=== PATIENT | male | born 1970 | race Caucasian/White ===

== ENCOUNTER 2022-05-23 12:39 | Outpatient (CLI) | payer BC, SELFPAY ==
--- OUTSIDE RECORDS SUMMARY | 2022-05-09 10:24 | XMS_ITS | Continuity of Care Document ---
:1970 Author Social History Smoking Status Unknown if ever smoked Additional Data Assigned Sex Male Medications No known medications Insurance Providers Guarantor Gilson Zambrano Address [address] [place], [place] [id number] Contact Info. Home Phone: Payer Policy Id Coverage Id Subscriber's Subscriber Id Effective E xpiration Name Date Date Blue [id number] Gilson Zambrano [id number] [facility] [id number]
--- NOTE | 2022-05-23 12:45 | CRLHL7_ITS ---
For Patients: As a result of the Century Cures Act, medical imaging exams and procedure reports are released immediately into your electronic medical record. You may view this report before your referring provider. If you have questions, please contact your health care provider. DATE: 05/23/2022. CLINICAL HISTORY: Lung cancer with brain metastases. TECHNIQUE: Multi-sequence, multiplanar MRI examination of the brain was performed. Contrast: 15mL of Dotarem administered intravenously COMPARISON: Brain MRI dated 02/17/2022. FINDINGS: There is no restricted diffusion in the brain to indicate the presence of acute ischemia. No extra-axial collection, mass effect, or midline shift. 4mm rounded focus of T2/FLAIR hyperintensity within the right temporal lobe (series 5, image 19), previously 2mm on the comparison examination. No convincing evidence of enhancement. Mild generalized parenchymal volume loss with resulting prominence of the cerebral sulci and the ventricular system. No definite pathologic intraparenchymal enhancement. 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 The orbits are unremarkable. Mild mucosal thickening of the inferior left maxillary sinus as well as the bilateral ethmoid air cells. Trace left greater than right mastoid effusions. The calvarium is unremarkable. IMPRESSION: 1. No definite pathologic intraparenchymal enhancement to suggest metastatic disease. 2. 4mm rounded T2/FLAIR hyperintense focus within the right temporal lobe, previously measuring 2mm on the comparison examination. While there is no definite enhancement, enhancement could be better assessed with the addition of thin section/3D post-contrast sequences on follow-up studies. 3. 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 4. No acute intracranial abnormality. Dictated by Juan Lazar MD @ 05/24/2022 10:10:21 PM (Electronically Signed)
== END 2022-05-23 12:40 | disposition home or self-care (01) ==
LOC: MRI 12:43
PROVIDERS: Visit Provider Radiology Radiation Oncology
DX: C79.31 Secondary malignant neoplasm of brain (principal); C34.90 Malignant neoplasm of unspecified part of unspecified bronchus or lung
CPT/HCPCS: 70553; A9575